=== PATIENT | male | born 1970 | race Caucasian/White ===

== ENCOUNTER 2022-04-04 15:15 | Outpatient (RCR) | payer BC, SELFPAY | END 2023-02-09 23:59 | disposition home or self-care (01) | PROVIDERS: PCP Family Medicine; Visit Provider Student in an Organized Health Care Education/Training Program | DX: S86.112A Strain of other muscle(s) and tendon(s) of posterior muscle group at lower leg level, left leg, initial encounter (principal); M25.69 Stiffness of other specified joint, not elsewhere classified; M62.838 Other muscle spasm; Z51.89 Encounter for other specified aftercare | CPT/HCPCS: 97035; 97140; 97161 ==